=== PATIENT | male | born 1965 | race Caucasian/White ===

== ENCOUNTER 2020-07-13 15:00 | Outpatient (CLI) | payer OTHER, SELFPAY | END 2020-07-13 15:01 | disposition home or self-care (01) | LOC: ANHCOVIDVC 15:00 | PROVIDERS: PCP Family Medicine | DX: Z23 Encounter for immunization (principal) | CPT/HCPCS: 0001A; 91300 ==

== ENCOUNTER 2020-08-03 14:58 | Outpatient (CLI) | payer OTHER, SELFPAY | END 2020-08-03 14:59 | disposition home or self-care (01) | LOC: ANHCOVIDVC 14:58 | PROVIDERS: PCP Family Medicine | DX: Z23 Encounter for immunization (principal) | CPT/HCPCS: 0002A; 91300 ==

== ENCOUNTER 2020-12-28 01:11 | Day surgery (SDC) | payer OTHER, SELFPAY ==
[2020-12-21 10:16] VITALS: BMI 27.4
[2020-12-28 10:40] VITALS: BP 131/88; PULSE 53; RESP 16; TEMP 35.7; O2SAT 100; BMI 27.2
[2020-12-28] MEDS: LACTATED RINGERS 1,000 ML 150 ML IV CONT (10:52)
--- NOTE | 2020-12-28 11:11 | WPDANESEPPF ---
Anes - Initial Pre Proc Eval Procedure: Operation Date: 12/28/20 12:00 Proposed Procedures p Screening Colonoscopy - Dave Li MD Date/Time: 12/28/20 11:11 Surgeon: Dave Li MD Pre Op Diagnosis: neoplasm screening Patient Data Age: 55 Gender: M Height: 1.73 m Weight: 81.3 kg Last Vital Signs Temp 96.3 F L 12/28/20 10:40 Pulse 53 L 12/28/20 10:40 Resp 16 12/28/20 10:40 BP 131/88 12/28/20 10:40 Pulse Ox 100 12/28/20 10:40 Allergies Allergy/AdvReac Type Severity Reaction Status Date / Time No Known Allergies Allergy Unknown Verified 12/28/20 10:39 Home Medications Medication Instructions Recorded Confirmed Type lisinopril 10 1 tablet PO DAILY #90 tablet 10/27/20 12/21/20 Rx mg-hydrochlorothiazide 12.5 mg tablet sod picosulf 10 mg-magnes 3.5 160 ml PO DAILY #320 ml 12/17/20 12/21/20 Rx gram-citric 12 gram/160 mL oral solution minocycline 50 mg capsule See Rx Instructions .ROUTE 12/23/20 Rx .COMPLEX #60 capsule Patient hx anesthesia problems: none Family hx anesthesia problems: none PMFSH Past Medical History Medical History (Updated 10/09/20 @ 12:38 by Dipika Nur MD) Abnormal ambulatory electrocardiogram Benign essential HTN Family History Family History Mother Patient's mother is in good health Sibling Patient's brother is in good health Father Family history of premature coronary heart disease, Onset Age: 66 Patient's father is Social History Social History Social History: Smoking status: Never smoker Second hand tobacco smoke exposure: No Alcohol intake: current Substance use: never Substance use type: does not use Living arrangements: with family Gender identity (if verbalized by the patient): Male Spiritual care concerns: No Anes - Eval Final PreProcedure Day of Procedure 12/28/20 11:11 Patient weight: normal Heart: regular rate and rhythm Lungs: clear to auscultation Airway: Mallampati scale class II Neurological: alert and oriented Last oral intake: >/= 8 hours ASA classification: II Emergent: no Anesthetic plan: proceed Anesthesia type and monitoring: general GIVS and standard monitoring Informed Consent: The patient's anesthetic plan and its attendant risks and benefits were discussed with the patient/family/POA. Questions were solicited and answers provided to the satisfaction of the patient/family/POA.
--- NOTE | 2020-12-28 11:16 | PM.HPGS ---
History of Present Illness History of Present Illness Consent: Risks, benefits, and alternatives have been discussed and questions answered. Patient agrees to proceed with procedure. Chief complaint: neoplasm screening Narrative: Brien Medellin is a 55 year old male here for first screening colonoscopy Review of Systems Constitutional: Constitutional: Denies headache(s) and Denies weakness Eyes: Eyes: Denies blurry vision ENT: Reports Normal hearing present, Denies headache(s) and Denies neck pain Cardiovascular: Cardiovascular: Denies chest pain and Denies dyspnea Respiratory: Respiratory: Denies dyspnea Gastrointestinal: Gastrointestinal: Reports no additional gastrointestinal complaints Genitourinary: Genitourinary: Denies dysuria Musculoskeletal: Musculoskeletal: Denies neck pain Integumentary/Breasts: Skin/Breast: Denies dry skin Neurologic: Reports Normal hearing present, Denies headache(s) and Denies weakness Psychiatric: Psychiatric: Denies anxiety Endocrine: Endocrine: Denies change in body appearance Hematologic/Lymphatic: Hematologic/Lymphatic: Denies easy bleeding Allergic/Immunologic: Allergic/Immunologic: Denies urticaria PMFSH Past Medical History Medical History (Updated 10/09/20 @ 12:38 by Dipika Nur MD) Abnormal ambulatory electrocardiogram Benign essential HTN Family History Family History Mother Patient's mother is in good health Sibling Patient's brother is in good health Father Family history of premature coronary heart disease, Onset Age: 66 Patient's father is Social History Social History Social History: Smoking status: Never smoker Second hand tobacco smoke exposure: No Alcohol intake: current Substance use: never Substance use type: does not use Living arrangements: with family Gender identity (if verbalized by the patient): Male Spiritual care concerns: No Meds Home Medications and Allergies Home Medications Medication Instructions Recorded Confirmed Type lisinopril 10 1 tablet PO DAILY #90 tablet 10/27/20 12/21/20 Rx mg-hydrochlorothiazide 12.5 mg tablet sod picosulf 10 mg-magnes 3.5 160 ml PO DAILY #320 ml 12/17/20 12/21/20 Rx gram-citric 12 gram/160 mL oral solution minocycline 50 mg capsule See Rx Instructions .ROUTE 12/23/20 Rx .COMPLEX #60 capsule Allergies Allergy/AdvReac Type Severity Reaction Status Date / Time No Known Allergies Allergy Unknown Verified 12/28/20 10:39 Vital Signs Vital Signs - 24 hr 12/28/20 10:40 Temperature 96.3 F L Pulse Rate 53 L Respiratory Rate 16 Blood Pressure 131/88 Pulse Oximetry 100 Exam Const: General: comfortable and no acute distress HENMT: General nose exam: Normal nares present Eyes: General: appearance normal, both eyes and all related structures Neck: Neck: no JVD Resp: Auscultation: clear to auscultation bilaterally Cardio: Rate: regular rate Rhythm: regular rhythm GI: Inspection: non-distended GI Palp: Yes Soft to palpation Skin: General skin exam: normal color Neuro: General: gait normal Speech: normal speech Extrem: General: normal to inspection Psych: Mental Status: mental status grossly normal Assessment and Plan Assessment and plan (1) Colon cancer screening: Code(s): Z12.11 - Encounter for screening for malignant neoplasm of colon Status: Acute Assessment and Plan: colonoscopy
[2020-12-28 11:34] VITALS: BP 102/64; PULSE 81; RESP 19; O2SAT 99
[2020-12-28 11:44] VITALS: BP 106/74; PULSE 73; RESP 19; O2SAT 99
[2020-12-28 11:54] VITALS: BP 122/83; PULSE 68; RESP 16; O2SAT 100
== END 2020-12-28 12:13 | disposition home or self-care (01) ==
PROVIDERS: PCP Family Medicine; Visit Provider Internal Medicine Gastroenterology
PROC: 0DJD8ZZ Inspection of Lower Intestinal Tract, Via Natural or Artificial Opening Endoscopic (ICD-10-PCS; CPT 45378; principal; 2020-12-28 12:00)
DX: Z12.11 Encounter for screening for malignant neoplasm of colon (principal); I10 Essential (primary) hypertension; K57.30 Diverticulosis of large intestine without perforation or abscess without bleeding; K64.8 Other hemorrhoids
CPT/HCPCS: 45378; J2001; J2704; J7120

== ENCOUNTER 2023-04-06 09:11 | Emergency (ER) | payer OTHER, SELFPAY ==
--- NOTE | 2023-04-06 09:12 | ED.URI ---
HPI - URI/Sore Throat General Chief Complaint: Ear Stated Complaint: Sore Throat;Earache Time Seen by Provider: 04/06/23 09:12 Source: patient Mode of arrival: ambulatory Limitations: no limitations History of Present Illness HPI Narrative: Patient is a 58-year-old male who presents with left ear pain that started Thursday. Patient reports it is intermittent and sharp causing left-sided sore throat as well. Patient takes daily Zyrtec and has been alternating ibuprofen and Tylenol. Patient states the Tylenol and ibuprofen do take the edge off. Did an at-home COVID test that was negative this morning. Denies any cough, congestion, fever, chills, nausea, vomiting, diarrhea. Related Data Allergies Allergy/AdvReac Type Severity Reaction Status Date / Time No Known Allergies Allergy Unknown Verified 04/06/23 09:22 Review of Systems Review of Systems: All systems reviewed & are unremarkable except as noted in HPI and below Constitutional: Constitutional: Denies body ache(s), Denies chills, Denies fever(s), Denies headache(s) and Denies malaise Eyes: Eyes: Denies blurry vision, Denies eye discharge and Denies irritation ENT: Reports otalgia, Denies headache(s), Denies nasal congestion, Denies nasal discharge and Denies sore throat Cardiovascular: Cardiovascular: Denies chest pain, Denies edema, Denies palpitations and Denies dyspnea on exertion Respiratory: Respiratory: Denies cough and Denies dyspnea on exertion Gastrointestinal: Gastrointestinal: Denies abdominal pain, Denies diarrhea, Denies nausea and Denies vomiting Musculoskeletal: Musculoskeletal: Denies back pain, Denies arthralgias and Denies muscle weakness Integumentary/Breasts: Skin/Breast: Denies pruritus and Denies rash Neurologic: Denies headache(s) Psychiatric: Psychiatric: Reports no additional psychiatric complaints Endocrine: Endocrine: Denies palpitations PMFSH Past Medical History Medical History Abnormal ambulatory electrocardiogram Benign essential HTN Family History Family History Mother Patient's mother is in good health Sibling Patient's brother is in good health Father Family history of premature coronary heart disease, Onset Age: 66 Patient's father is Social History Social History Social History: Smoking status: Never smoker Second hand tobacco smoke exposure: No Alcohol intake: current Alcohol use details: Occasionally Substance use: never Substance use type: does not use Living arrangements: with family Occupation/Education: occupation Gender identity (if verbalized by the patient): Male Sexual Orientation (if Verbalized by the Patient): Straight or Heterosexual Spiritual care concerns: No Comments At time of signature, agree with nursing past medical, surgical, social and family history. There is no relevant family history pertinent to the presenting complaint? Exam Const: General: cooperative, healthy appearing, no acute distress and well nourished Nutritional Appearance: well nourished Orientation/consciousness: patient oriented x3 Limitations: no limitations HENMT: Head: normal to inspection, normocephalic and atraumatic Ears: hearing grossly normal bilaterally, TM's normal bilaterally, EAC's normal and no periauricular adenopathy Face/Nose/Sinus: Normal external nose present, Normal nares present, Normal nasal mucous membranes and turbinates present, No nasal discharge present, normal facial exam and sinuses nontender Face and sinus: normal facial exam and sinuses nontender Mouth: Yes Normal oral and palatal mucosa present, Yes lip normal, Yes tongue normal and Yes moist mucous membranes Throat: posterior oropharynx normal, tonsils normal and uvula midline Eyes: General: appearance normal, both eyes a
[2023-04-06 09:22] VITALS: BP 125/84; PULSE 65; RESP 16; TEMP 36.6; O2SAT 100
[2023-04-06 09:23] VITALS: BP 125/84; PULSE 65; RESP 16; TEMP 36.6; O2SAT 100
== END 2023-04-06 09:41 | disposition home or self-care (01) ==
PROVIDERS: Emergency Provider Nurse Practitioner Family; PCP Family Medicine
DX: H92.02 Otalgia, left ear (principal); I10 Essential (primary) hypertension
CPT/HCPCS: 99211; G0463